=== PATIENT | female | born 2000 | race Caucasian/White ===

== ENCOUNTER 2020-01-17 12:47 | Emergency (ER) | payer BC ==
[~2020-01-17] VITALS: Ht 167.6 cm; Wt 54.4 kg
[2020-01-17 13:15] VITALS: Ht 167.6 cm; Wt 54.4 kg
[2020-01-17 14:40] LABS: BASOPHIL % 0.3 % (0-2); PLATELET COUNT 243 x10^3mcL (130-400); RED CELL DISTRIBUTION WIDTH 13.1 % (11.5-14.5)
[2020-01-17 14:59] LABS: AMPHETAMINE QUAL UR NONE DETECTED (See below)
[2020-01-17 15:25] LABS: CARBON DIOXIDE 27.2 mmol/L (21-32); CHLORIDE SERUM 103 mmol/L (98-107); CREATININE SERUM 0.8 mg/dL (0.6-1.0); GFR1 > 60 mL/min; GLUCOSE SERUM 83 mg/dL (74-106); POTASSIUM SERUM 4.5 mmol/L (3.5-5.1); SODIUM SERUM 138 mmol/L (136-145)
[2020-01-17 15:26] LABS: CALCIUM 8.8 mg/dL (8.5-10.1)
[2020-01-17 15:32] LABS: ALBUMIN 3.4 g/dL (3.4-5.0); ALKALINE PHOSPHATASE 54 U/L (46-116); ALT/SGPT 18 U/L (14-59); AST/SGOT 13 U/L (15-37); BILIRUBIN TOTAL 0.3 mg/dL (0.20-1.00); T4(THYROXINE) 7.6 ug/dL (4.7-13.3); TOTAL PROTEIN, SERUM 6.6 g/dL (6.4-8.2)
[2020-01-17 19:02] VITALS: BP 100/58
== END 2020-01-17 19:03 ==
LOC: ED 12:47
PROVIDERS: Emergency Medicine
DX: R00.2 Palpitations (principal); J45.909 Unspecified asthma, uncomplicated
CPT/HCPCS: Q0092

== ENCOUNTER 2020-01-18 23:33 | Inpatient (IN) | payer BC ==
[~2020-01-18] VITALS: Ht 167.6 cm; Wt 56.3 kg
[2020-01-19] VITALS (7 sets, daily range): BP systolic 89–110; BP diastolic 41–64
[2020-01-19] MEDS ORDERED: DULERA1 AR2 IH (00:18)
[2020-01-19] MEDS ORDERED: TRAZODONE50 M1 PO (00:18)
[2020-01-19] MEDS ORDERED: TRAZODONE150 M1 PO (00:33)
[2020-01-19 00:35] LABS: AMPHETAMINE QUAL UR NONE DETECTED (See below)
[2020-01-19] MEDS ORDERED: FLUOXETINE HCL40 MG PO (01:33)
[2020-01-19] MEDS ORDERED: HYDROXYZINE HYD25 MG PO (07:17)
[2020-01-19] MEDS ORDERED: VENLAFAXINE HYD75 M2 PO (07:18)
[2020-01-20] VITALS: BP 110/72
[2020-01-20 06:14] VITALS: BP 94/50
[2020-01-20 07:31] LABS: BASOPHIL % 0.4 % (0-2); PLATELET COUNT 200 x10^3mcL (130-400)
[2020-01-20 07:49] LABS: CALCIUM 8.3 mg/dL (8.5-10.1); CARBON DIOXIDE 26.1 mmol/L (21-32); CHLORIDE SERUM 106 mmol/L (98-107); CREATININE SERUM 0.5 mg/dL (0.6-1.0); GFR1 > 60 mL/min; GLUCOSE SERUM 81 mg/dL (74-106); POTASSIUM SERUM 3.7 mmol/L (3.5-5.1); SODIUM SERUM 139 mmol/L (136-145)
[2020-01-20 08:17] VITALS: BP 102/60
[2020-01-20 12:08] VITALS: BP 108/67
[2020-01-20 16:40] VITALS: BP 96/48
[2020-01-20 21:49] VITALS: BP 101/50
[2020-01-21 05:50] VITALS: BP 90/45
[2020-01-21 08:20] VITALS: BP 102/52
[2020-01-21 17:34] VITALS: BP 110/64
[2020-01-21 20:12] VITALS: BP 100/62
[2020-01-22 05:16] VITALS: BP 91/36
[2020-01-22 08:49] VITALS: BP 92/52
[2020-01-22] MEDS ORDERED: ECO81 PO (10:09)
[2020-01-22] MEDS ORDERED: CARCD120 PO (10:09)
[2020-01-22 13:22] VITALS: BP 100/55
== END 2020-01-22 16:45 | DRG 310 ==
LOC: ED 23:33 → MU 01-19 00:38 → DU 01-19 00:38 → MU 01-20 16:27
PROVIDERS: Emergency Medicine; ADMIT Internal Medicine; ATTEND Internal Medicine
DX: I48.92 Unspecified atrial flutter (principal); Z20.828 Contact with and (suspected) exposure to other viral communicable diseases; J45.909 Unspecified asthma, uncomplicated; F41.9 Anxiety disorder, unspecified; F32.9 Major depressive disorder, single episode, unspecified
CPT/HCPCS: G0378; J7030; U0003-CS